=== PATIENT | male | born 1965 | race Two or more races ===

== ENCOUNTER → 2022-12-05 | Outpatient (CLI) | payer MEDICAID ==
[~2022-12-05] VITALS: Ht 172.7 cm; Wt 91.2 kg
== END | disposition home or self-care (01) ==
LOC: Rad HDHVI 09:09
PROVIDERS: ATTEND Internal Medicine Cardiovascular Disease
DX: Z01.810 Encounter for preprocedural cardiovascular examination (principal); R00.2 Palpitations; E78.5 Hyperlipidemia, unspecified; Z82.49 Family history of ischemic heart disease and other diseases of the circulatory system
CPT/HCPCS: 78452; 93017; 96374; A9500

== ENCOUNTER → 2022-12-09 | Outpatient (CLI) | payer MEDICAID | END | disposition home or self-care (01) | LOC: Rad HDHVI 08:02 | PROVIDERS: ATTEND Internal Medicine Cardiovascular Disease | DX: I34.0 Nonrheumatic mitral (valve) insufficiency (principal); R00.2 Palpitations; I10 Essential (primary) hypertension | CPT/HCPCS: 93306 ==

== ENCOUNTER 2024-11-04 09:32 | Day surgery (SDC) | payer MEDICAID ==
[2024-11-02 10:05] LABS: Basophils # (auto) 0 10 ^3/uL (0-0.2); Basophils % (auto) 0.4 % (0.0-2.0); Eosinophils # (auto) 0.2 10 ^3/uL (0-0.8); Eosinophils % (auto) 2.9 % (0.0-7.0); Hematocrit 43.4 % (41.0-53.0); Hemoglobin 14.8 g/dL (13.5-17.5); Lymphocytes # (auto) 1.9 10 ^3/uL (0.4-5.4); Lymphocytes % (auto) 25.4 % (10.0-50.0); Mean Corpuscular Hemoglobin 30.4 pg (28.0-32.0); Mean Corpuscular Hgb Conc. 34.2 g/dL (32.0-36.0); Mean Corpuscular Volume 88.7 fL (80.0-100.0); Monocytes # (auto) 0.7 10 ^3/uL (0-1.3); Monocytes % (auto) 8.9 % (0.0-12.0); Neutrophils # (auto) 4.7 10 ^3/uL (1.6-8.6); Neutrophils % (auto) 62.4 % (37.0-80.0); Platelet Count (auto) 237 10^3/uL (140-450); Red Blood Cells 4.89 10^6/uL (4.5-5.90); Red Cell Distribution Width 14.6 % (11.8-14.3); White Blood Cell 7.5 10^3/uL (4.4-10.8)
[2024-11-02 10:20] LABS: INR 1.01 (0.9-1.15); Partial Thromboplastin Time 28.8 SEC (24.5-34.5); Prothrombin Time 10.7 sec (9.3-11.8)
[2024-11-02 10:30] LABS: Alanine Aminotransferase 29 U/L (7-40); Alkaline Phosphatase 112 U/L (46-116); Anion Gap 7 (5-15); BUN/Creatinine Ratio 21.1 (10.0-20.0); Blood Urea Nitrogen 20 mg/dL (9-23); Carbon Dioxide 28 mmol/L (20-31); Chloride 106 mmol/L (98-107); Potassium 4.4 mmol/L (3.5-5.1); Sodium 141 mmol/L (136-145); Total Protein 7.5 g/dL (5.7-8.2)
[2024-11-02 10:32] LABS: Aspartate Aminotransferase 15 U/L (13-40); Bilirubin, Total 0.6 mg/dL (0.2-1.0)
[2024-11-02 10:37] LABS: Albumin 4.8 g/dL (3.2-4.8); Glucose 111 mg/dL (74-106)
[~2024-11-04] VITALS: Ht 172.7 cm; Wt 93.0 kg
[~2024-11-04 09:32] MED LIST: ASPI1TAB20 PO; ATOR20TA PO; B-COCAP34 OR; MAGN100C5 PO; MULT-1018 OR
[2024-11-04] MEDS ORDERED: SODIUM CHLORIDE LOCK 10 ML ONE (11:59)
[2024-11-04] MEDS ORDERED: LIDOCAINE VISCOUS 2% 15ML UD ONE (11:59)
--- NOTE | 2024-11-04 12:49 | DVHOP2 ---
Operative Report DATE OF OPERATION: 11/04/24 PROCEDURE: Upper Endoscopy with biopsy. PREOPERATIVE INDICATION: The patient is a 59 -year-old male undergoing endoscopy for chronic GERD and dysphagia POSTOPERATIVE DIAGNOSES: 1. Patient had a 1-2 cm sliding-type hiatal hernia with the acute inflammatory esophagitis and an inflammatory fold or polyp at the GE junction from which multiple biopsies were obtained 2. Mild gastritis and moderate duodenitis of the duodenal bulb and postbulbar area 3. GE junction was dilated with Conrad number 48 4. Otherwise normal examination of the 2nd and 3rd part of the duodenum PROCEDURE PERFORMED BY: Marcelina Joshi GI NURSE: Saulo SCOPE: Olympus videoendoscope. ASA CLASS: 2 PREOPERATIVE MEDICATIONS: Versed 3 mg, Fentanyl 50 mcg, Benadryl 50 mg I administered moderate sedation throughout this _10_ minutes procedure. An independent trained observer pushed medications at my direction, and monitored the patient's level of consciousness and physiological status throughout. PROCEDURE IN DETAIL: After obtaining an informed consent, the patient was placed on left lateral decubitus position. The patient was then sedated with the above medications. A bite block was placed between his teeth. The endoscope was then passed through the oropharynx, into the esophagus, and through the stomach and pylorus up to the second and third part of the duodenum. The endoscope was then withdrawn. The 2nd and 3rd part of the duodenum were normal and the duodenal bulb showed moderate duodenitis The pre-pyloric area and antrum showed mild gastritis with some hyperemia erythema On retroflexion the fundus and cardia were normal. Duodenal and gastric bio psies were obtained. The endoscope was then withdrawn into distal esophagus where the patient had a 1-2 cm sliding-type hiatal hernia The remaining distal and proximal esophagus were unremarkable. A Conrad dilator number 48 was passed through the distal esophagus with no significant resistance Repeat endoscopy confirmed adequate dilatation. There was inflammatory nodule or polypoid fold at the GE junction from which multiple biopsies were obtained and GE junction biopsies were obtained The patient tolerated the procedure well without difficulty. COMPLICATIONS : None SPECIMENS: Duodenal biopsies Gastric biopsies GE junction an inflammatory nodule at GE junction biopsies DISPOSITION: Stable D/C to home PLAN: 1. Await for biopsy result 2. Will place pt on Protonix 40 mg bid 3. Carafate 1 g p.o. twice a day 4. DC aspirin NSAIDs smoking alcohol 5. Start with a full liquid diet advance to pureed then soft mechanical 6. Possible repeat endoscopy in 3-6 months to re-evaluate inflammatory polyp at the GE junction and consider polypectomy pending pathology results 7. Outpatient follow up with me in 4-6 weeks to review results and discuss further management MARCELINA JOSHI MD November 04, 2024 12:49
[2024-11-15 11:37] VITALS: PULSE 57; RESP 16; O2SAT 98
[2024-11-15] MEDS: diphenhdrAMINE HCL 50 MG/1 ML VL ONE (11:43)
[2024-11-15] MEDS: fentaNYL CITRATE 100 MCG/2 ML VL ONE (11:43)
[2024-11-15] MEDS: MIDAZOLAM HCL 5 MG/ML-1ML VIAL ONE (11:43)
[2024-11-15 12:00] VITALS: TEMP 97; O2SAT 95
[2024-11-15 12:20] VITALS: BP 123/70; PULSE 58; RESP 16; O2SAT 96
== END 2024-11-04 13:35 | disposition home or self-care (01) ==
LOC: GI 09:32
PROVIDERS: ATTEND Internal Medicine Gastroenterology
DX: K21.00 Gastro-esophageal reflux disease with esophagitis, without bleeding (principal); R13.10 Dysphagia, unspecified; K22.82 Esophagogastric junction polyp; K29.70 Gastritis, unspecified, without bleeding; K29.80 Duodenitis without bleeding; K44.9 Diaphragmatic hernia without obstruction or gangrene; E78.5 Hyperlipidemia, unspecified; Z98.890 Other specified postprocedural states
CPT/HCPCS: 36415; 43239; 43450; 80053; 85025; 85610; 85730; 88305; 88312; 88342; J1200; J2250; J3010; J7030; 10005